=== PATIENT | female | born 1985 ===

== ENCOUNTER → 2019-04-17 | Outpatient (CLI) | payer MEDICAID ==
--- NOTE | 2019-04-17 12:39 | Diagnostic Imaging Report ---
INDICATION: survey. TECHNIQUE: Multiple real-time grayscale images were obtained over the gravid uterus. COMPARISON: None. FINDINGS: There are no prior studies available for comparison. There is a single live fetus in cephalic presentation. heart motion was noted, and a rate of 156 BPM was recorded. There were no abnormalities identified. The growth parameters are fairly uniform. The placenta is anterior, and there is no previa. The amniotic fluid volume is within normal limits. The cervix was visualized and measures 4.9 cm in length. Biometrical measurements are as follows: Biparietal 3.82 cm, age 17 weeks 5 days. Head circumference 13.77 cm, age 17 weeks 2 days. Abdominal circumference 11.53 cm, age 17 weeks 3 days. Femur length 2.24 cm, age 16 weeks 5 days. Sonographic estimate age: 17 weeks 2 days. Sonographic estimated date of delivery: 09/23/2019. Estimated Weight: 179 gm (+/- 26 gm). LMP percentile: 6%. heart rate: 156 beats per minute. number: 1 of 1. IMPRESSION: 1. There is a single live fetus of approximately 17 weeks 2 days gestation, +/-1 week. The EDC is September 23, 2019. 2. There were no abnormalities identified. 3. The growth parameters are fairly uniform. Dictated by: Dictated on workstation # [id number]
== END ==
LOC: RAD 11:12
PROVIDERS: ATTEND Family Medicine
DX: Z36.89 Encounter for other specified antenatal screening (principal); Z3A.17 17 weeks gestation of pregnancy
CPT/HCPCS: 76805

== ENCOUNTER 2019-08-30 19:05 | Outpatient (CLI) | payer MEDICAID ==
[~2019-08-30] VITALS: Ht 154.9 cm; Wt 75.0 kg
--- NOTE | 2019-08-30 19:13 | NUR ---
MILTON GUPTA presented to unit via AMBULATION from ED, FOR INJECTION AND LAB WORK. MILTON GUPTA weighed, gowned, voided, and to bed. EFHM and TOCO applied, VS taken. MILTON GUPTA oriented to bed controls, call light, TV, heat, and A/C controls.
[2019-08-30] MEDS ORDERED: PEN G BENZ (BICILLIN LA) 1.2 M UN/2 ML SYR IM NR (19:30)
--- NOTE | 2019-08-30 20:11 | NUR ---
Dr. Fajardo notified that pt. has arrived to unit and lab work, injection, and FHT via Doppler were all completed. Pt. voiced no other concerns. Orders to discharge received.
--- NOTE | 2019-08-30 20:19 | NUR ---
Written discharge instructions reviewed with patient. Discharge instructions signed and copy given. patient dismissed home via ambulation. Condition stable. No signs or symptoms of distress.
--- NOTE | 2019-09-02 08:12 | Physician Query-Final Dx ---
ABDELRAHMAN MERCHANT 09/02/19 0812: Clinic Account Progress/Dx Physician Query: Please give diagnosis Please include # weeks gestation Date of Service Aug 30, 2019 at 19:05 PHILL CHANDLER MD 09/02/19 1420: Clinic Account Progress/Dx DIAGNOSIS: Diagnosis Third trimester Genital ulcer ABDELRAHMAN MERCHANT Sep 02, 2019 08:12 PHILL CHANDLER MD Sep 02, 2019 14:20
== END 2019-08-30 20:19 | disposition home or self-care (01) ==
LOC: LDRP 19:05 → WSo 19:05
PROVIDERS: ATTEND Family Medicine
DX: O23.593 Infection of other part of genital tract in pregnancy, third trimester (principal); Z3A.00 Weeks of gestation of pregnancy not specified
CPT/HCPCS: 36415; 86780; 96372; 99212

== ENCOUNTER 2019-09-09 16:40 | Inpatient (IN) | payer MEDICAID ==
[2019-09-09] VITALS (24 sets, daily range): BP systolic 100–145; BP diastolic 59–84
[~2019-09-09] VITALS: Ht 152 cm; Wt 75.1 kg
--- NOTE | 2019-09-09 16:40 | NUR ---
MILTON GUPTA presented to unit via ambulation from office, accompanied by S.o., for INDUCTION. MILTON GUPTA weighed, gowned, voided, and to bed. EFHM and TOCO applied, VS taken. MILTON GUPTA oriented to bed controls, call light, TV, heat, and A/C controls. Addendum: 09/09/19 at 1947 by NAIF SAUNDERS RN Dr. Fajardo called about pt prior to arrival. notified no labor beds readily available. Just monitor pt until labor bed is available, then start labor process.
--- NOTE | 2019-09-09 16:45 | NUR ---
THIS RN INTRODUCES SELF TO PT AND SO, DISCUSS PLAN OF CARE, HOOK PT TO FHT MONITOR & TOCO, URINE DIPSTICK. PT WILL REMAIN IN ROOM 315 UNTIL LABOR ROOM BECOMES AVAILABLE. DR CHANDLER AND PT ARE BOTH AWARE OF THE SITUATION. WILL BEGIN INDUCTION AFTER MOVED TO LABOR ROOM. THIS RN SETS UP LABOR ROOM, QUESTIONS ANSWERED, CALL LIGHT WITHIN REACH.
[2019-09-09] MEDS ORDERED: D5 LR IV SOLUTION 1,000 ML IV SCH (16:51)
[2019-09-09] MEDS ORDERED: OXYTOCIN/NORMAL SALINE 500 ML IV SCH (16:51)
--- NOTE | 2019-09-09 18:15 | NUR ---
Dr. Fajardo called and notified of IV start, pt ready for pitocin. OK to get epidural when requests, order for diflucan rec'd for yeast infection, may change NPO to clear liquid diet. No further orders rec'd.
[2019-09-09 18:17] LABS: BASOPHILS % (AUTO) 0 % (0-10); EOSINOPHILS # (AUTO) 0.1 10^3/uL (0.0-0.3); EOSINOPHILS % (AUTO) 1 % (0-10); HEMATOCRIT 36 % (35-52); HEMOGLOBIN 12.4 G/DL (11.5-16.0); LYMPHOCYTES # (AUTO) 1.7 X 10^3 (1.0-4.0); LYMPHOCYTES % (AUTO) 20 % (12-44); MEAN CORPUSCULAR HEMOGLOBIN 33 PG (25-34); MEAN CORPUSCULAR HGB CONC 34 G/DL (32-36); MEAN CORPUSCULAR VOLUME 97 FL (80-99); MEAN PLATELET VOLUME 11.4 FL (7.4-10.4); MONOCYTES # (AUTO) 0.7 X 10^3 (0.0-1.0); MONOCYTES % (AUTO) 8 % (0-12); NEUTROPHILS # (AUTO) 5.9 X 10^3 (1.8-7.8); NEUTROPHILS % (AUTO) 70 % (42-75); PLATELET COUNT 172 10^3/uL (130-400); RED CELL DISTRIBUTION WIDTH 13.9 % (10.0-14.5); WHITE BLOOD COUNT 8.4 10^3/uL (4.3-11.0)
[2019-09-09] MEDS ORDERED: fluCOnazole (DIFLUCAN) 100 MG TAB PO NR (18:45)
[2019-09-09] MEDS ORDERED: SUFENTA 0.6MCG/ML BUPIVA 0.125 100 ML ONE (19:30)
[2019-09-09] MEDS ORDERED: BUPIVACAINE 0.25% 30 ML (SENSORCAINE) VIAL ONE (19:51)
[2019-09-09] MEDS ORDERED: fentaNYL INJECTION 100 MCG/2 ML AMP ONE (19:51)
--- NOTE | 2019-09-09 19:56 | NUR ---
Teresita Xiong FOOT WORKER here for epidural placement. Procedure explained, consent reviewed and signed by anesthesia. Questions answered to patient's satisfaction. Time out taken to verify correct patient/procedure. Patient up to side of bed, assisted into sitting position. Betadine prep done x3 and sterile drape applied. Local done, see anesthesia record. Test dose given, see anesthesia record for drug and dosage. Epidural catheter secured in place. Epidural placement complete. Assisted back into bed, monitors adjusted. Epidural dosed, see anesthesia record. Epidural of Sufenta/Bupivicaine @ 10 cc/hr stated per pump. Patient tolerated procedure well.
--- NOTE | 2019-09-09 20:50 | History & Physical-OB ---
OB - Chief Complaint & HPI Date/Time Date of Admission: Date of Admission: Sep 09, 2019 at 16:40 Date seen by a Provider: Sep 09, 2019 Time Seen by a Provider: 20:30 Chief Complaint/History OB-Reason for Admission/Chief: Induction of Labor Hx : 3 Hx Para: 2 Expected Date of Delivery: Sep 18, 2019 Gestational Age in Weeks: 38 Gestational Age in Days: 5 Indication for induction: other (oligohydramnios, non-reassuring BPP) History of Labs O+, antibody neg, RI. HIV/HepB Neg. GC/chlamydia neg. Glucola nml. GBS neg. RPR REACTIVE, FTA abs positive Allergies and Home Medications Allergies Coded Allergies: No Known Drug Allergies (Unverified , 08/30/19) Home Medications Vit No.124/Iron/FA 1 Each Tablet, 1 EACH PO DAILY, (Reported) Ranitidine HCl 150 Mg Tablet, 150 MG PO DAILY, (Reported) Patient Home Medication List Home Medication List Reviewed: Yes OB - History Hx of Present Care: Yes Ultrasounds: Normal mid trimester US Obstetrical Complications: Other Information Induced Hypertension: No Maternal Gestational Diabetes: No Hemorrhage: No Obstetrical History Hx : 3 Hx Para: 2 Hx # Term Pregnancies: 2 Hx # Pregnancies: 0 Hx Total # of Abortions (Spona: 1 Hx Multiple Gestation: No Hx Ectopic : No Hx Stillbirth: No Hx Complication: Yes (seizures in second trimester with first two pregnancies) Hx Induced Hypertens: No Hx Maternal Gestational Diabet: No Hx Hemorrhage: No Delivery History Hx Dystocia: No Hx Forceps Assisted Delivery: No Hx Vacuum Extraction Assisted: No Hx Placenta Abnormality: No Hx Distress: No Hx Large For Gestational Age I: No Hx Small for Gestational Age I: No Hx Section: No Hx Vaginal Delivery Post C-Sec: No Hx Blood Disorders: No Adverse Rxn to Tranfusion: No Patient Past Medical History Syphilis Social History/Family History HIV/AIDS: No Recent Infectious Disease Expo: No Sexually Transmitted Disease: Yes Alcohol Use: Denies Use Recreational Drug Use: No Smoking Cessation: Never smoker Immunizations Hepatitis A: Yes Hepatitis B: Yes Rubella: immune RPR/VDRL: Positive GBS Status: Negative HBsAG: Negative OB - Admission Exam Physical Exam Vitals: Vital Signs 09/09/19 09/09/19 17:00 19:00 Temp 36.7 Pulse 100 Resp 20 B/P (MAP) 143/84 (103) Pulse Ox 98 O2 Delivery Room Air HEENT: NCAT Abdomen: Non tender Extremities: Edema Cervical Dilatation: 4cm Effacement: 25% Station: -3 Membranes: Ruptured (AROM at time of exam) Amniotic Fluid: Clear Heart Rate: 120's Decelerations: No Decelerations Short Term Variability: Present Jail Variability: Average (6-25) Contractions on Admission: >10 Minutes Apart Soria Scoring Tool (Modified) Dilation (cm): 3-4cm (2) Effacement (%): 51-79% (2) Descent/Station: -3 (0) Cervix Consistency: Soft (2) Cervix Position: Anterior (2) Add 1 point for: Each previous vaginal delivery (1) (2) Soria Score: 6 Labs Laboratory Tests Test 09/09/19 18:00 Range/Units White Blood Count 8.4 4.3-11.0 10^3/uL Red Blood Count 3.73 L 4.35-5.85 10^6/uL Hemoglobin 12.4 11.5-16.0 G/DL Hematocrit 36 35-52 % Mean Corpuscular Volume 97 80-99 FL Mean Corpuscular Hemoglobin 33 25-34 PG Mean Corpuscular Hemoglobin Concent 34 32-36 G/DL Red Cell Distribution Width 13.9 10.0-14.5 % Platelet Count 172 130-400 10^3/uL Mean Platelet Volume 11.4 H 7.4-10.4 FL Neutrophils (%) (Auto) 70 42-75 % Lymphocytes (%) (Auto) 20 12-44 % Monocytes (%) (Auto) 8 0-12 % Eosinophils (%) (Auto) 1 0-10 % Basophils (%) (Auto) 0 0-10 % Neutrophils # (Auto) 5.9 1.8-7.8 X 10^3 Lymphocytes # (Auto) 1.7 1.0-4.0 X 10^3 Monocytes # (Auto) 0.7 0.0-1.0 X 10^3 Eosinophils # (Auto) 0.1 0.0-0.3 10^3/uL Basophils # (Auto) 0.0 0.0-0.1 10^3/uL OB - Assessment/Plan/Diagnosis Assessment Assessment: induction of labor Admission Dx Oligohydramnios Nonreassuring BPP Induction of labor 38 weeks gestation Primary syphilis at 35-36 weeks gestation GBS negative Admission Status: Inpatient Order (span 2 midnights) Reason for Inpatient Admission: Induction, labor and delivery and course Plan Plan: Induction Induction Method: per Pitocin Protocol Other Plan See problem list Problems: (1) Primary syphilis Assessment & Plan: Lesion first noted at 35 weeks and was not ulcerated, at 36 weeks, lesion had ulcerated and repeat RPR drawn which was non-reactive, but at the same time had positive TPPA so she was treated with IM penicillin and FTA abs drawn, those also came back positive. Lesion is currently healed. Repeat RPR at 38 weeks positive 1:2. Will plan to treat given her treatment was adequate but less than 4 weeks from delivery. (2) Oligohydramnios Assessment & Plan: JOSE less than 5 today, along with BPP 03/04. Induction due to non-reassuring testing. Qualifiers: Qualified Codes: O41.03X0 - Oligohydramnios, third trimester, not applicable or unspecified PHILL CHANDLER MD Sep 09, 2019 20:49
[2019-09-09] MEDS ORDERED: RANI150T11 PO (20:51)
[2019-09-09] MEDS ORDERED: PREN-142 PO (20:51)
[2019-09-09] MEDS ORDERED: LACTATED RINGERS 1,000 ML IV ONE (20:57)
[2019-09-09] MEDS ORDERED: EPIDURAL (SUFENTA 0.6MCG/ML BUPIVA 0.125%) 100 ML BAG EPI SCH (21:00)
[2019-09-09] MEDS ORDERED: CATHETER FLUSH 10 ML SYR IV PRN (21:00)
[2019-09-09] MEDS ORDERED: NALOXONE 0.4 MG/ML 1 ML (NARCAN) VIAL IV PRN (21:00)
[2019-09-09] MEDS ORDERED: CATHETER FLUSH 10 ML SYR IV SCH (22:00)
[2019-09-09] MEDS ORDERED: MINERAL OIL CONCENTRATE 99.9% 15 ML UDC ONE (23:56)
[2019-09-09] MEDS ORDERED: LIDOCAINE/EPI 2% 1:200,00 (XYLOCAINE) 10 ML VIAL ONE ×2 (23:56)
[2019-09-10] VITALS (16 sets, daily range): BP systolic 102–141; BP diastolic 51–92
--- NOTE | 2019-09-10 00:53 | OB Labor & Delivery Record ---
Vag Delivery Note Vag Delivery Note Date of Delivery: 09/10/19 Preoperative Diagnosis: Sherlyn Boyd is a 33 /Para 3 / 2,Gestational Age (wks)38with 6 days Postoperative Diagnosis: Same Surgeon: PHILL CHANDLER Occupational Medicine Officer: Emily Mclaughlin, OMS3 Anesthesia: Epidural Delivery Type: Spontaneous vaginal delivery Findings: Viable male , apgars 8/8, weight 6#9 Lacerations: perineal abrasion Intact placenta with 3 vessel cord. Nuchal cord x 1, reduced, no body cord or shoulder dystocia Estimated Blood Loss: 300 ml Complications: None Condition: Stable Description of Procedure: The patient is a 33 year old female who presented for IOL due to oligohydramnios. She was admitted and informed consent was obtained. Her labor course was remarkable for early decelerations with rapid descent. She progressed to complete dilatation and began to push. She was then set up for delivery. The 's head was delivered atraumatically in the SUZAN position. Nuchal cord x 1 easily reduced. The shoulders and remainder of the 's body were then delivered without difficulty. Upon delivery, the infant was placed on maternal abdomen. The cord was doubly clamped and cut and the infant was transitioning well on maternal abdomen/[id number]. An intact placenta with 3-vessel cord delivered via David and there was found to be minimal bleeding.~ Vigorous fundal massage was performed and the fundus was found to be firm. IV oxytocin was given. Examination of the vagina and perineum revealed a perineal abrasion not requiring repair. Following the repair, sponge, instrument and needle counts were correct. Mom and baby were both in stable condition in the labor suite. Vitals - Labs Vital Signs - I&O Vital Signs Date Time Temp Pulse Resp B/P (MAP) Pulse Ox O2 Delivery O2 Flow Rate FiO2 09/09/19 20:45 36.6 123 20 119/76 (90) 100 Room Air 09/09/19 20:30 99 20 145/81 (102) 100 Room Air 09/09/19 20:15 110 20 135/81 (99) 100 Room Air 09/09/19 20:08 88 20 124/73 (90) 100 Room Air 09/09/19 20:05 84 20 131/79 (96) 100 Room Air 09/09/19 20:01 87 20 128/81 (97) 100 Room Air 09/09/19 20:00 36.6 83 20 115/59 (77) 100 Room Air 09/09/19 19:56 94 20 135/83 (100) 100 Room Air 09/09/19 19:45 20 Room Air 09/09/19 19:30 98 20 123/77 (92) Room Air 09/09/19 19:00 36.7 100 20 143/84 (103) 09/09/19 17:00 35.7 95 18 98 Room Air 09/09/19 16:50 35.7 100 20 113/74 (87) 98 Room Air I & O 09/10/19 07:00 Intake Total 1000 ml Balance 1000 ml Labs Laboratory Tests 09/09/19 18:00: White Blood Count 8.4, Red Blood Count 3.73L, Hemoglobin 12.4, Hematocrit 36, Mean Corpuscular Volume 97, Mean Corpuscular Hemoglobin 33, Mean Corpuscular Hemoglobin Concent 34, Red Cell Distribution Width 13.9, Platelet Count 172, Mean Platelet Volume 11.4H, Neutrophils (%) (Auto) 70, Lymphocytes (%) (Auto) 20, Monocytes (%) (Auto) 8, Eosinophils (%) (Auto) 1, Basophils (%) (Auto) 0, Neutrophils # (Auto) 5.9, Lymphocytes # (Auto) 1.7, Monocytes # (Auto) 0.7, Eo sinophils # (Auto) 0.1, Basophils # (Auto) 0.0 PHILL CHANDLER MD Sep 10, 2019 00:53
[2019-09-10] MEDS ORDERED: BENZOCAINE/MENTHOL (DERMOPLAST) 56 ML CAN TP PRN (01:45)
[2019-09-10] MEDS ORDERED: OXYTOCIN/NORMAL SALINE 500 ML IV SCH (01:45)
[2019-09-10] MEDS ORDERED: WITCH HAZEL(TUCKS) 40 EA JAR TOP PRN (01:45)
[2019-09-10] MEDS ORDERED: IBUPROFEN 600 MG (MOTRIN) TAB PO ONE (01:52)
[2019-09-10] MEDS: IBUPROFEN 600 MG (MOTRIN) TAB PO SCH ×4 (01:59→21:36)
--- NOTE | 2019-09-10 01:59 | NUR ---
Scheduled Motrin PO given. Fundus firm U/1 with small rubra lochia noted. No clots. Pericare completed and clean pad and panties applied. Infant continues to breastfeed.
--- NOTE | 2019-09-10 02:15 | NUR ---
Report to Augusto Hines RN.
[2019-09-10] MEDS ORDERED: IBUPROFEN 600 MG (MOTRIN) TAB PO SCH (06:00)
[2019-09-10] MEDS ORDERED: CATHETER FLUSH 10 ML SYR IV SCH (06:00)
--- NOTE | 2019-09-10 08:15 | NUR ---
THIS RN TO BEDSIDE DUE TO 'S IV BEEPING. PT IN BED, DENIES ANY NEEDS AT THIS TIME. WILL RETURN SHORTLY FOR AM ASSESSMENT.
[2019-09-10] MEDS: PRENATAL VITAMIN 1 EA TAB PO SCH (09:13)
[2019-09-10] MEDS: DOCUSATE SODIUM 100 MG (COLACE) CAP PO SCH ×2 (09:13→20:12)
--- NOTE | 2019-09-10 09:15 | NUR ---
PT REMAINS IN BED, BEING HELD. VS OBTAINED. MEDS GIVEN PO; SEE EMAR FOR FURTHER. INITIAL SHIFT ASSESSMENT COMPLETED; SEE INTERVENTION FOR FURTHER. NO NEEDS VOICED. CALL LIGHT WITHIN REACH.
--- NOTE | 2019-09-10 09:25 | Anesthesia-Regional Post-Op ---
Regional Patient Condition Mental Status: Alert, Oriented x3 Circulation: Same as Pre-Op Headache: Absent Sensation: Full Recovery Motor Block: Absent Post Op Complications Complications None Follow Up Care/Instructions Patient Instructions None needed. Anesthesia/Patient Condition Patient is doing well, no complaints, stable vital signs, no apparent adverse anesthesia problems. No complications reported per nursing. RINA MOBLEY CRNA Sep 10, 2019 09:25
--- NOTE | 2019-09-10 12:30 | NUR ---
PT SITTING IN CHAIR, JUST FINISHED EATING. VS OBTAINED. IV DC'D. GAUZE AND BAND AID APPLIED OVER SITE. NO NEEDS VOICED. S/O AT THE BEDSIDE.
[2019-09-11 00:45] VITALS: BP 104/66
[2019-09-11] MEDS: IBUPROFEN 600 MG (MOTRIN) TAB PO SCH ×4 (03:38→20:20)
[2019-09-11 03:40] VITALS: BP 94/58
[2019-09-11 06:03] LABS: BASOPHILS % (AUTO) 1 % (0-10); EOSINOPHILS # (AUTO) 0.2 10^3/uL (0.0-0.3); EOSINOPHILS % (AUTO) 3 % (0-10); HEMATOCRIT 34 % (35-52); HEMOGLOBIN 11.1 G/DL (11.5-16.0); LYMPHOCYTES # (AUTO) 2.5 X 10^3 (1.0-4.0); LYMPHOCYTES % (AUTO) 31 % (12-44); MEAN CORPUSCULAR HEMOGLOBIN 32 PG (25-34); MEAN CORPUSCULAR HGB CONC 33 G/DL (32-36); MEAN CORPUSCULAR VOLUME 98 FL (80-99); MEAN PLATELET VOLUME 11.4 FL (7.4-10.4); MONOCYTES # (AUTO) 0.9 X 10^3 (0.0-1.0); MONOCYTES % (AUTO) 11 % (0-12); NEUTROPHILS # (AUTO) 4.3 X 10^3 (1.8-7.8); NEUTROPHILS % (AUTO) 55 % (42-75); PLATELET COUNT 147 10^3/uL (130-400); WHITE BLOOD COUNT 7.9 10^3/uL (4.3-11.0)
[2019-09-11 08:00] VITALS: BP 95/68
--- NOTE | 2019-09-11 08:45 | NUR ---
A.M. ASSESSMENT COMPLETED. VSS. REMAINS IN CONTACT ISOLATION.CARING FOR INFANT IN ROOM.
[2019-09-11] MEDS: PRENATAL VITAMIN 1 EA TAB PO SCH (08:53)
[2019-09-11] MEDS: DOCUSATE SODIUM 100 MG (COLACE) CAP PO SCH ×2 (08:53→20:20)
--- NOTE | 2019-09-11 10:00 | NUR ---
NO APPARENT PROBLEMS. S.O. AT BEDSIDE. BACK TO STANDARD PRECAUTIONS PER DR. LAROSE'S ORDER.
--- NOTE | 2019-09-11 12:00 | NUR ---
CONTINUES TO DO WELL.
[2019-09-11 14:00] VITALS: BP 102/61
--- NOTE | 2019-09-11 14:00 | NUR ---
VSS. . DOING WELL. OFFERS NO COMPLAINTS.
--- NOTE | 2019-09-11 16:20 | NUR ---
INFANT REMAINS IN ROOM. S.O. AT BEDSIDE. DENIES ANY WANTS OR NEEDS.
--- NOTE | 2019-09-11 17:50 | NUR ---
HOLDING . PREPARING TO EAT DINNER.
[2019-09-11 20:20] VITALS: BP 98/66
--- NOTE | 2019-09-11 23:02 | Postpartum Progress Note ---
Note Note Day # 1 Subjective: Patient is without complaints. Ambulating, voiding. Tolerating a regular diet without nausea or vomiting. Normal lochia. Pain is well controlled with oral pain medications. Breast feeding without difficulty. Tearful during visit. Objective: Physical Exam: General - Alert and oriented, no apparent distress Abdomen - Soft, appropriately tender to palpation, non-distended, fundus firm at umbilicus Extremities - no edema, negative Laya's bilaterally Assessment: 31 post- day # 1, status post uncomplicated vaginal delivery at term Recovering well, hemodynamically stable Plan: Routine care. Encourage breast feeding. Encourage ambulation. Syphillis during : Patient has completed treatment Plan for discharge tomorrow Vitals - Labs Vital Signs - I&O Vital Signs Date Time Temp Pulse Resp B/P (MAP) Pulse Ox O2 Delivery O2 Flow Rate FiO2 09/11/19 20:20 37.1 76 18 98/66 (77) 99 Room Air 09/11/19 14:00 36.5 74 18 102/61 (75) 97 Room Air 09/11/19 08:00 37.0 70 18 95/68 (77) 99 Room Air 09/11/19 03:40 36.6 79 16 94/58 (70) 99 Room Air 09/11/19 00:45 36.4 85 16 104/66 (79) 99 Room Air Labs Laboratory Tests 09/11/19 05:24: White Blood Count 7.9, Red Blood Count 3.47L, Hemoglobin 11.1L, Hematocrit 34L, Mean Corpuscular Volume 98, Mean Corpuscular Hemoglobin 32, Mean Corpuscular Hemoglobin Concent 33, Red Cell Distribution Width 14.0, Platelet Count 147, Mean Platelet Volume 11.4H, Neutrophils (%) (Auto) 55, Lymphocytes (%) (Auto) 31, Monocytes (%) (Auto) 11, Eosinophils (%) (Auto) 3, Basophils (%) (Auto) 1, Neutrophils # (Auto) 4.3, Lymphocytes # (Auto) 2.5, Monocytes # (Auto) 0.9, Eosinophils # (Auto) 0.2, Basophils # (Auto) 0.0, Syphilis Serology [facility] JIE LAROSE MD Sep 11, 2019 23:01
[2019-09-12 01:24] VITALS: BP 99/68
[2019-09-12] MEDS: IBUPROFEN 600 MG (MOTRIN) TAB PO SCH ×3 (01:24→13:49)
[2019-09-12] MEDS ORDERED: KETOROLAC 30 MG/ML VIAL ONE (07:36)
--- NOTE | 2019-09-12 07:36 | NUR ---
toradol pulled in error. medication returned. see eMAR for AM medication administration.
[2019-09-12 08:30] VITALS: BP 102/70
--- NOTE | 2019-09-12 08:30 | NUR ---
lights off, s/o resting on sofa at bedside. semi-cruz in bed with infant in arms. vitals taken. see eMAR, and physical shift assessment. fresh pitcher of ice water placed at bedside. denies questions or concerns. will continue to monitor.
[2019-09-12] MEDS: PRENATAL VITAMIN 1 EA TAB PO SCH (08:41)
[2019-09-12] MEDS: DOCUSATE SODIUM 100 MG (COLACE) CAP PO SCH (08:41)
--- NOTE | 2019-09-12 12:57 | Discharge Summary ---
Diagnosis/Chief Complaint Date of Admission Sep 09, 2019 at 16:40 Date of Discharge 09/12/2019 Admission Diagnosis Admission Diagnosis Labor 40 week gestation Term Syphilis in Discharge Diagnosis Term of male via Discharge Summary-Simple/Stand Procedures Epidural Placement Discharge Physical Examination Allergies: Coded Allergies: No Known Drug Allergies (Unverified , 08/30/19) Vitals & I&Os Vital Sign - Last 12Hours Date Time Temp Pulse Resp B/P (MAP) Pulse Ox O2 Delivery O2 Flow Rate FiO2 09/12/19 08:30 36.4 80 18 102/70 (81) Room Air 09/12/19 01:24 100 General Appearance: Alert, Oriented X3, Cooperative, No Acute Distress HEENT: Mucous Memb Moist/Geiger Respiratory: Clear to Auscultation, Normal Air Movement Cardiovascular: Regular Rate, No Murmurs Abdominal: Normal Bowel Sounds, Soft, No Tenderness, No Masses, Other (fundus firm and below umbilicus) Extremities: No Edema, No Tenderness/Swelling Neuro: Strength at 5/5 X4 Ext, Cranial Nerves 3-12 NL Psych/Mental Status: Mental Status NL Hospital Course See final discharge diagnosis. Discussion & Recommendations 33 yo G3 now P3 mother delivered male via . care complicated with Reactive RPR and ulceration around 35 weeks. Patient was adequately treated but since less then 4 weeks of treatment requires treatment and screening. Breast feeding well. Patient will have 6 week post visit with Dr Fajardo Discharge Condition at discharge stable Instructions to patient/family Please see electronic discharge instructions given to patient. Discharge Medications Reviewed and agree with Discharge Medication list on patient's Discharge Instruction sheet Clinical Quality Measures DVT/VTE Risk/Contraindication: Risk Factor Score Per Nursin RFS Level Per Nursing on Admit: 2=Moderate JIE LAROSE MD Sep 12, 2019 12:57
[2019-09-12] MEDS ORDERED: IBUP-844 PO (12:58)
--- NOTE | 2019-09-12 13:00 | Discharge Instructions ---
Discharge Inst-[facility] Reconcile Patient Problems Problems Reviewed?: Yes Depart Medications New Medications: Ibuprofen (Ibu) 600 Mg Tablet 600 MG PO Q6H, #90 TAB Continued Medications: Vit No.124/Iron/FA ( Vitamin Tablet) 1 Each Tablet 1 EACH PO DAILY, TAB Discontinued Medications: Ranitidine HCl (Ranitidine HCl) 150 Mg Tablet 150 MG PO DAILY Follow Up/Instructions Goal/Follow Up: F.u with Dr Fajardo in 6 weeks Activity Activity: Activity as Tolerated Driving Instructions: You May Drive NO SMOKING: NO SMOKING Nothing Inside Vagina: No Douching, No [place], No Tampons Diet Discharge Diet: No Restrictions Symptoms to Report to : Bleeding Excessive, Fever Over 101 Degrees F, Lightheadedness, Shortness of Breath For Any Problems or Questions: Contact Your Physician Copies To 1: PHILL FAJARDO MD, HOLLY R MD Sep 12, 2019 13:00
[2019-09-12 13:45] VITALS: BP 106/69
--- NOTE | 2019-09-12 14:00 | NUR ---
MILTON GUPTA demonstrates understanding of discharge instructions and accurately returns instructions upon questioning. Copy of Post-Discharge Instructions and Medication Discharge Instructions given to PATIENT. MILTON UGPTA is able to manage continuing needs after discharge. Patients belongings returned to PATIENT. Skin dry and intact; no breakdown noted. Patient discharged from [facility]- on 09-12-19 at 1400.
== END 2019-09-12 14:00 | disposition home or self-care (01) | DRG 806 ==
LOC: LDRP 16:40 → WS 09-10 03:15
PROVIDERS: ADMIT Family Medicine; ATTEND Family Medicine
PROC: 3E033VJ Introduction of Other Hormone into Peripheral Vein, Percutaneous Approach (ICD-10-PCS; 2019-09-09)
PROC: 10E0XZZ Delivery of Products of Conception, External Approach (ICD-10-PCS; principal; 2019-09-10)
DX: O41.03X0 Oligohydramnios, third trimester, not applicable or unspecified (principal); O98.12 Syphilis complicating childbirth; A53.9 Syphilis, unspecified; O69.81X0 Labor and delivery complicated by cord around neck, without compression, not applicable or unspecified; O71.82 Other specified trauma to perineum and vulva; O76 Abnormality in fetal heart rate and rhythm complicating labor and delivery; Z3A.38 38 weeks gestation of pregnancy; Z37.0 Single live birth
CPT/HCPCS: 36415; 85025; 86592; 86780; 86850; 86900; 86901; 88307

== ENCOUNTER 2023-01-03 19:26 | Outpatient (CLI) | payer MEDICAID ==
[~2023-01-03] VITALS: Ht 154.9 cm; Wt 76.6 kg
[~2023-01-03 19:26] MED LIST: IBUP-844 PO; PREN-142 PO; RANI150T11 PO
[2023-01-03 20:00] VITALS: BP 101/73
--- NOTE | 2023-01-04 08:13 | Physician Query-Final Dx ---
01/04/23 0813: Clinic Account Progress/Dx Physician Query: Please give diagnosis Please include # weeks gestation Date of Service Jan 03, 2023 at 19:26 PHILL CHANDLER MD 01/04/23 1617: Clinic Account Progress/Dx DIAGNOSIS: Diagnosis Decreased movement- reactive NST, BPP ordered for am. Third trimester 38 weeks gestation Jan 04, 2023 08:13 PHILL CHANDLER MD Jan 04, 2023 16:17
== END 2023-01-03 21:00 | disposition home or self-care (01) ==
LOC: LDRP 19:26 → WSo 19:26 → LDRP 19:34 → WSo 21:00
PROVIDERS: ATTEND Family Medicine
DX: O36.8130 Decreased fetal movements, third trimester, not applicable or unspecified (principal); Z3A.38 38 weeks gestation of pregnancy
CPT/HCPCS: 99213

== ENCOUNTER → 2023-01-04 | Outpatient (CLI) | payer MEDICAID ==
--- NOTE | 2023-01-04 13:22 | Diagnostic Imaging Report ---
INDICATION: Decreased movements. TECHNIQUE: Multiple real-time grayscale images were obtained over the gravid uterus. COMPARISON: None FINDINGS: There is a single live fetus in a cephalic presentation. heart rate was recorded at 153 bpm. Amniotic fluid index is 12.1 cm. A biophysical profile was performed with a normal score of 8 out of 8. Biometrical measurements are as follows: Biparietal 9.53 cm, age 39 weeks 0 days. Head circumference 33.62 cm, age 38 weeks 4 days. Abdominal circumference 32.00 cm, age 36 weeks 0 days. Femur length 7.27 cm, age 37 weeks 2 days. Sonographic estimate age: 37 weeks 5 days. Sonographic estimated date of delivery: 01/20/2023. Estimated Weight: 3052 gm (+/- 446 gm). LMP percentile: 28%. heart rate: 153 beats per minute. number: 1 of 1. IMPRESSION: 1. Single live IUP approximate 38 weeks gestational age. No complicating features are seen. 2. Biophysical profile score 8 out of 8. Dictated by: Dictated on workstation # [id number]
== END ==
LOC: RAD 08:15
PROVIDERS: ATTEND Family Medicine
DX: O36.8130 Decreased fetal movements, third trimester, not applicable or unspecified (principal); Z3A.38 38 weeks gestation of pregnancy
CPT/HCPCS: 76805; 76819

== ENCOUNTER 2023-01-05 23:34 | Inpatient (IN) | payer MEDICAID ==
[~2023-01-05] VITALS: Ht 152.4 cm; Wt 77.2 kg
[2023-01-05 23:47] VITALS: BP 127/77
[2023-01-06] VITALS (36 sets, daily range): BP systolic 85–137; BP diastolic 52–79
[2023-01-06] MEDS ORDERED: MINERAL OIL 30 ML UDC TOP PRN (06:15)
[2023-01-06] MEDS ORDERED: OXYTOCIN PRE-MIX DRIP 500 ML IV SCH ×3 (06:15→12:45)
[2023-01-06] MEDS ORDERED: D5 LR IV SOLUTION 1,000 ML IV SCH (06:15)
[2023-01-06 06:57] LABS: BASOPHILS % (AUTO) 0 % (0-10); EOSINOPHILS # (AUTO) 0.1 10^3/uL (0.0-0.3); EOSINOPHILS % (AUTO) 1 % (0-10); HEMATOCRIT 34 % (35-52); HEMOGLOBIN 11.6 g/dL (11.5-16.0); LYMPHOCYTES # (AUTO) 1.7 10^3/uL (1.0-4.0); LYMPHOCYTES % (AUTO) 20 % (12-44); MEAN CORPUSCULAR HEMOGLOBIN 32 pg (25-34); MEAN CORPUSCULAR HGB CONC 34 g/dL (32-36); MEAN CORPUSCULAR VOLUME 94 fL (80-99); MEAN PLATELET VOLUME 11.4 fL (9.0-12.2); MONOCYTES # (AUTO) 0.9 10^3/uL (0.0-1.0); MONOCYTES % (AUTO) 10 % (0-12); NEUTROPHILS % (AUTO) 69 % (42-75); PLATELET COUNT 158 10^3/uL (130-400); WHITE BLOOD COUNT 8.8 10^3/uL (4.3-11.0)
[2023-01-06] MEDS ORDERED: fentaNYL 2 mcg/ml BUPIVA 0.125 100 ML ONE (08:07)
--- NOTE | 2023-01-06 08:09 | History & Physical-OB ---
OB - Chief Complaint & HPI Date/Time Date of Admission: Date of Admission: Jan 06, 2023 at 06:02 Date seen by a Provider: Jan 06, 2023 Time Seen by a Provider: 08:04 Chief Complaint/History OB-Reason for Admission/Chief: Onset of Labor Hx : 4 Hx Para: 3 Expected Date of Delivery: Jan 16, 2023 Gestational Age in Weeks: 38 Gestational Age in Days: 4 Other reason for admission: presented at 38w3d with contractions, has been having regular contractions for several days. On arrival, 4.5 cm dilated, this morning 5.5 cm. Admission Nurse Assessment Rev: Yes History of Labs O+, antibody neg, RI. HIV/HepB/RPR NR. 1 hour glucola positive, 3 hour negative. GBS negative. History of syphilis treated in previous in 2019 with sero-reversion and negative RPR in this . Allergies and Home Medications Allergies Coded Allergies: No Known Drug Allergies (Unverified , 08/30/19) Patient Home Medication List Home Medication List Reviewed: Yes Vit No.124/Iron/FA ( Vitamin Tablet) 1 Each Tablet, 1 EACH PO DAILY, (Reported) Entered as Reported by: PHILL CHANDLER on 09/09/192050 Last Action: Reviewed Discontinued Medications Ibuprofen (Ibu) 600 Mg Tablet, 600 MG PO Q6H Discontinued Reason: No Longer Taking Prescribed by: JIE LAROSE on 09/12/19 1258 OB - History Hx of Present Care: Yes Ultrasounds: Normal mid trimester US Obstetrical Complications: None Medical Complications: None Information Induced Hypertension: No Maternal Gestational Diabetes: No Hemorrhage: No Obstetrical History Hx : 4 Hx Para: 3 Hx # Term Pregnancies: 3 Hx # Pregnancies: 0 Number of Living Children: 3 Hx Termination: No Hx Total # of Abortions (Spona: 0 Hx Multiple Gestation: No Hx Ectopic : No Hx Stillbirth: No Hx Complication: Yes (seizures in second trimester with first two pregnancies) Hx Induced Hypertens: No Hx Maternal Gestational Diabet: No Hx Hemorrhage: No Delivery History Hx Dystocia: No Hx Forceps Assisted Delivery: No Hx Vacuum Extraction Assisted: No Hx Placenta Abnormality: No Hx Distress: No Hx Large For Gestational Age I: No Hx Small for Gestational Age I: No Hx Section: No Hx Vaginal Delivery Post C-Sec: No Hx Blood Disorders: No Adverse Rxn to Tranfusion: No Patient Past Medical History PMHx: Syphilis treated in 2019 with follow up testing negative Social History/Family History Alcohol Use: Denies Use Recreational Drug Use: No Smoking Cessation: Never smoker 2nd Hand Smoke Exposure: No Immunizations Influenza Vaccine Up-to-Date: No; Not Current Hepatitis A: Yes Hepatitis B: Yes Rubella: immune RPR/VDRL: Negative GBS Status: Negative HBsAG: Negative OB - Admission Exam Physical Exam Vitals: Vital Signs HEENT: NCAT Abdomen: Non tender Extremities: Normal Cervical Dilatation: 5cm Effacement: 50% Station: -3 Membranes: Intact (ruptured at time of exam) Amniotic Fluid: Clear Heart Rate: 130's Accelerations: Accelerations Present Decelerations: No Decelerations [facility] Variability: Average (6-25) Contractions on Admission: < 5 Minutes Apart Labs Laboratory Tests Test 01/06/23 06:45 Range/Units White Blood Count 8.8 4.3-11.0 10^3/uL Red Blood Count 3.59 L 3.80-5.11 10^6/uL Hemoglobin 11.6 11.5-16.0 g/dL Hematocrit 34 L 35-52 % Mean Corpuscular Volume 94 80-99 fL Mean Corpuscular Hemoglobin 32 25-34 pg Mean Corpuscular Hemoglobin Concent 34 32-36 g/dL Red Cell Distribution Width 12.5 10.0-14.5 % Platelet Count 158 130-400 10^3/uL Mean Platelet Volume 11.4 9.0-12.2 fL Immature Granulocyte % (Auto) 0 % Neutrophils (%) (Auto) 69 42-75 % Lymphocytes (%) (Auto) 20 12-44 % Monocytes (%) (Auto) 10 0-12 % Eosinophils (%) (Auto) 1 0-10 % Basophils (%) (Auto) 0 0-10 % Neutrophils # (Auto) 6.0 1.8-7.8 10^3/uL Lymphocytes # (Auto) 1.7 1.0-4.0 10^3/uL Monocytes # (Auto) 0.9 0.0-1.0 10^3/uL Eosinophils # (Auto) 0.1 0.0-0.3 10^3/uL Basophils # (Auto) 0.0 0.0-0.1 10^3/uL Immature Granulocyte # (Auto) 0.0 0.0-0.1 10^3/uL OB - Assessment/Plan/Diagnosis Assessment Assessment: active labor Admission Dx at 38w4d in prolonged latent labor GBS negative Admission Status: Inpatient Order (span 2 midnights) Reason for Inpatient Admission: Labor, delivery and course Plan Other Plan Discussed slow but persistent cervical change and persistent contractions indicated prolonged latent labor and discussed options including expectant management and augmentation. She is having significant pain with contractions and has made cervical change overnight and would prefer to proceed with augmentation, AROM done at time of exam. PHILL CHANDLER MD Jan 06, 2023 08:09
[2023-01-06] MEDS ORDERED: METOCLOPRAMIDE INJ 10 MG/2 ML (REGLAN) IV PRN (09:30)
[2023-01-06] MEDS ORDERED: NALOXONE 0.4 MG/ML 1 ML (NARCAN) VIAL IV PRN ×2 (09:30)
[2023-01-06] MEDS ORDERED: diphenhydrAMINE 50 MG/ML INJ (BENADRYL) IV PRN (09:30)
[2023-01-06] MEDS ORDERED: LACTATED RINGERS 1,000 ML IV SCH (09:30)
[2023-01-06] MEDS ORDERED: ONDANSETRON 4 MG/2 ML (SDV) Z0FRAN IV PRN (09:30)
[2023-01-06] MEDS ORDERED: fentaNYL 2 mcg/ml BUPIVA 0.125 100 ML EPI SCH (09:30)
--- NOTE | 2023-01-06 12:34 | OB Labor & Delivery Record ---
Vag Delivery Note Vag Delivery Note Date of Delivery: 01/06/23 Preoperative Diagnosis: Sherlyn Boyd is a (37 /Para 4 / 3,Gestational Age (wks)38with 4 days Postoperative Diagnosis: Same Surgeon: PHILL CHANDLER Anesthesia: Epidural Delivery Type: Findings: Viable male , apgars 8/9, weight 7#2 Lacerations: none Intact placenta with 3 vessel cord. No nuchal cord, body cord or shoulder dystocia Estimated Blood Loss: 100 ml Complications: None Condition: Stable Description of Procedure: The patient is a 37 year old female who presented in labor. She was admitted and informed consent was obtained. Her labor course was unremarkable. She progressed to complete dilatation and began to push. She was then set up for delivery. The 's head was delivered atraumatically in the SUZAN position. The shoulders and remainder of the infant's body were then delivered without difficulty. Upon delivery, the was vigorous and placed on maternal chest and the mouth and nares were bulb suctioned. After a delay cord was doubly clamped and cut and the infant remained on maternal chest. An intact placenta with 3-vessel cord delivered via David and there was found to be minimal bleeding.~ . IV oxytocin was given. Examination of the vagina and perineum revealed no lacerations. Following the delivery, sponge, instrument and needle counts were correct. Mom and baby were both in stable condition in the labor suite. Vitals - Labs Vital Signs - I&O Vital Signs Date Time Temp Pulse Resp B/P (MAP) Pulse Ox O2 Delivery O2 Flow Rate FiO2 01/06/23 11:00 87 18 116/61 (79) 99 Room Air 01/06/23 10:45 93 18 108/64 (79) 98 Room Air 01/06/23 10:30 36.2 93 18 104/61 (75) 97 Room Air 01/06/23 10:15 83 18 104/60 (75) 97 Room Air 01/06/23 10:00 94 18 116/64 (81) 97 Room Air 01/06/23 09:48 83 18 106/66 (79) 98 Room Air 01/06/23 09:45 83 18 106/66 (79) 98 Room Air 01/06/23 09:43 76 18 95/59 (71) 96 Room Air 01/06/23 09:40 76 18 88/53 (65) 96 Room Air 01/06/23 09:37 72 18 85/54 (64) 98 Room Air 01/06/23 09:34 86 18 93/55 (68) 97 Room Air 01/06/23 09:30 85 89/52 (64) 97 Room Air 01/06/23 09:29 97 18 92/55 (67) 97 Room Air 01/06/23 09:26 101 18 106/65 (79) 97 Room Air 01/06/23 09:23 91 18 104/66 (79) 97 Room Air 01/06/23 09:20 91 18 108/56 (73) 98 Room Air 01/06/23 09:15 94 18 122/71 (88) 98 Room Air 01/06/23 09:12 91 18 119/69 (86) 98 Room Air 01/06/23 09:10 37.2 83 18 116/57 (76) 98 Room Air 01/06/23 09:00 100 18 137/76 (96) 99 Room Air 01/06/23 08:30 87 18 110/68 (82) Room Air 01/06/23 08:00 36.7 85 18 114/79 (91) Room Air 01/06/23 07:30 88 18 110/70 (83) Room Air 01/05/23 23:47 36.4 105 18 127/77 95 Room Air 01/05/23 23:47 36.4 105 18 127/77 (94) 95 Room Air Labs Laboratory Tests 01/06/23 06:45: White Blood Count 8.8, Red Blood Count 3.59L, Hemoglobin 11.6, Hematocrit 34L, Mean Corpuscular Volume 94, Mean Corpuscular Hemoglobin 32, Mean Corpuscular Hemoglobin Concent 34, Red Cell Distribution Width 12.5, Platelet Count 158, Mean Platelet Volume 11.4, Immature Granulocyte % (Auto) 0, Neutrophils (%) (A uto) 69, Lymphocytes (%) (Auto) 20, Monocytes (%) (Auto) 10, Eosinophils (%) (Auto) 1, Basophils (%) (Auto) 0, Neutrophils # (Auto) 6.0, Lymphocytes # (Auto) 1.7, Monocytes # (Auto) 0.9, Eosinophils # (Auto) 0.1, Basophils # (Auto) 0.0, Immature Granulocyte # (Auto) 0.0 PHILL CHANDLER MD Jan 06, 2023 12:34
[2023-01-06] MEDS ORDERED: BENZOCAINE/MENTHOL (DERMOPLAST) 56 ML CAN TP PRN (12:45)
[2023-01-06] MEDS ORDERED: TETANUS,DIPTH,PERTUSS P/F (BOOSTRIX) 0.5 ML VIAL IM ONE (12:45)
[2023-01-06] MEDS ORDERED: WITCH HAZEL(TUCKS) 40 EA JAR TOP PRN (12:45)
[2023-01-06] MEDS: IBUPROFEN 600 MG (MOTRIN) TAB PO SCH ×2 (13:14→20:53)
[2023-01-06] MEDS ORDERED: CATHETER FLUSH 10 ML SYR IV SCH ×2 (14:00)
[2023-01-06] MEDS: DOCUSATE SODIUM 100 MG (COLACE) CAP PO SCH (20:53)
[2023-01-06] MEDS: ACETAMINOPHEN 500 MG TAB (TYLENOL) PO SCH (22:25)
[2023-01-07 00:34] VITALS: BP 99/57
[2023-01-07 04:41] VITALS: BP 100/72
[2023-01-07] MEDS: IBUPROFEN 600 MG (MOTRIN) TAB PO SCH ×3 (04:41→16:29)
[2023-01-07] MEDS: ACETAMINOPHEN 500 MG TAB (TYLENOL) PO SCH ×3 (04:41→16:29)
[2023-01-07 05:25] LABS: BASOPHILS % (AUTO) 0 % (0-10); EOSINOPHILS # (AUTO) 0.1 10^3/uL (0.0-0.3); EOSINOPHILS % (AUTO) 1 % (0-10); HEMATOCRIT 35 % (35-52); LYMPHOCYTES # (AUTO) 2.5 10^3/uL (1.0-4.0); LYMPHOCYTES % (AUTO) 23 % (12-44); MEAN CORPUSCULAR HEMOGLOBIN 33 pg (25-34); MEAN CORPUSCULAR HGB CONC 34 g/dL (32-36); MEAN CORPUSCULAR VOLUME 96 fL (80-99); MEAN PLATELET VOLUME 11.3 fL (9.0-12.2); MONOCYTES % (AUTO) 9 % (0-12); NEUTROPHILS # (AUTO) 6.9 10^3/uL (1.8-7.8); NEUTROPHILS % (AUTO) 65 % (42-75); PLATELET COUNT 155 10^3/uL (130-400); WHITE BLOOD COUNT 10.5 10^3/uL (4.3-11.0)
--- NOTE | 2023-01-07 09:30 | Postpartum Progress Note ---
Note Note Day # 1 Subjective: Patient is without complaints. Ambulating, voiding. Tolerating a regular diet without nausea or vomiting. Normal lochia. Pain is well controlled with oral pain medications. Breast feeding exclusively. Patient has no concerns. Denies fevers, nausea, and vomiting. Objective: Patient was up and ambulating around the room at the start of the exam. Physical Exam: General - Alert and oriented, no apparent distress Abdomen - Soft, appropriately tender to palpation, non-distended, fundus firm at umbilicus Extremities - no edema, negative Laya's bilaterally Cardiac- regular rate and rhythm Pulmonary- clear lung sounds bilaterally with no crackles or wheezes Assessment: Post- day # 1, status post spontaenous vaginal delivery. Recovering well, hemodynamically stable Plan: Routine care. Encourage breast feeding. Encourage ambulation. Ferrous sulfate supplementation. Plan for discharge today Vitals - Labs Vital Signs - I&O Vital Signs Date Time Temp Pulse Resp B/P (MAP) Pulse Ox O2 Delivery O2 Flow Rate FiO2 01/07/23 04:41 36.1 83 18 100/72 (81) 98 Room Air 01/07/23 00:34 36.8 80 18 99/57 (71) 98 Room Air 01/06/23 19:55 36.6 86 18 100/62 (75) 98 Room Air 01/06/23 14:52 83 18 98/55 (69) Room Air 01/06/23 14:44 83 18 98/55 (69) Room Air 01/06/23 14:14 93 18 102/62 (75) Room Air 01/06/23 13:44 80 18 107/57 (74) Room Air 01/06/23 13:31 37.2 80 18 101/57 (72) Room Air 01/06/23 13:16 95 18 109/57 (74) Room Air 01/06/23 13:01 83 18 101/60 (74) Room Air 01/06/23 12:46 88 18 112/66 (81) Room Air 01/06/23 12:34 36.6 93 18 107/58 (74) Room Air 01/06/23 12:17 107 18 116/62 (80) Room Air 01/06/23 12:02 Room Air 01/06/23 12:00 Room Air 01/06/23 11:45 Room Air 01/06/23 11:30 96 18 128/76 (93) 99 Room Air 01/06/23 11:15 96 18 128/76 (93) 99 Room Air 01/06/23 11:00 87 18 116/61 (79) 99 Room Air 01/06/23 10:45 93 18 108/64 (79) 98 Room Air 01/06/23 10:30 36.2 93 18 104/61 (75) 97 Room Air 01/06/23 10:15 83 18 104/60 (75) 97 Room Air 01/06/23 10:00 94 18 116/64 (81) 97 Room Air 01/06/23 09:48 83 18 106/66 (79) 98 Room Air 01/06/23 09:45 83 18 106/66 (79) 98 Room Air 01/06/23 09:43 76 18 95/59 (71) 96 Room Air 01/06/23 09:40 76 18 88/53 (65) 96 Room Air 01/06/23 09:37 72 18 85/54 (64) 98 Room Air 01/06/23 09:34 86 18 93/55 (68) 97 Room Air 01/06/23 09:30 85 89/52 (64) 97 Room Air 01/06/23 09:29 97 18 92/55 (67) 97 Room Air I & O 01/07/23 07:00 Intake Total 1400 ml Output Total 600 ml Balance 800 ml Labs Laboratory Tests 01/07/23 05:17: White Blood Count 10.5, Red Blood Count 3.66L, Hemoglobin 12.0, Hematocrit 35, Mean Corpuscular Volume 96, Mean Corpuscular Hemoglobin 33, Mean Corpuscular Hemoglobin Concent 34, Red Cell Distribution Width 12.7, Platelet Count 155, Mean Platelet Volume 11.3, Immature Granulocyte % (Auto) 0, Neutrophils (%) (Auto) 65, Lymphocytes (%) (Auto) 23, Monocytes (%) (Auto) 9, Eosinophils (%) (Auto) 1, Basophils (%) (Auto) 0, Neutrophils # (Auto) 6.9, Lymphocytes # (Auto) 2.5, Monocytes # (Auto) 1.0, Eosinophils # (Auto) 0.1, Basophils # (Auto) 0.0, Immature Granulocyte # (Auto) 0.0 GAL VERDIN Jan 07, 2023 09:30
[2023-01-07 10:30] VITALS: BP 111/57
[2023-01-07] MEDS: DOCUSATE SODIUM 100 MG (COLACE) CAP PO SCH (10:40)
--- NOTE | 2023-01-07 10:59 | Discharge Summary ---
Discharge Summary Hospital Course Problems Reviewed?: Yes Hospital Course Date of Admission: Jan 06, 2023 at 06:02 Admission Diagnosis : Family Physician/Provider: Myrna Fajardo MD Date of Discharge: 01/07/23 Discharge Diagnosis: [ ] Hospital Course: [ ] Labs and Pending Lab Test: Laboratory Tests 01/07/23 05:17: White Blood Count 10.5, Red Blood Count 3.66L, Hemoglobin 12.0, Hematocrit 35, Mean Corpuscular Volume 96, Mean Corpuscular Hemoglobin 33, Mean Corpuscular Hemoglobin Concent 34, Red Cell Distribution Width 12.7, Platelet Count 155, Mean Platelet Volume 11.3, Immature Granulocyte % (Auto) 0, Neutrophils (%) (Auto) 65, Lymphocytes (%) (Auto) 23, Monocytes (%) (Auto) 9, Eosinophils (%) (Auto) 1, Basophils (%) (Auto) 0, Neutrophils # (Auto) 6.9, Lymphocytes # (Auto) 2.5, Monocytes # (Auto) 1.0, Eosinophils # (Auto) 0.1, Basophils # (Auto) 0.0, Immature Granulocyte # (Auto) 0.0 Home Meds Active Reported Vitamin Tablet ( Vit No.124/Iron/FA) 1 Each Tablet 1 Each PO DAILY Patient Discharge Instructions 37yo F here post @ 38w3d without any complications. Patient is being discharged home today. Planning to breast feed at home. Patient will have some vaginal bleeding/spotting over the next few weeks which is normal. Patient can clean vaginal area with water and soap. Ibuprofen and tylenol can be taken for pain. Will have a 6 week visit with your obstetrics provider. Activity: Activity as Tolerated Driving Instructions: You May Drive NO SMOKING: NO SMOKING Nothing Inside Vagina: No Douching, No [place], No Tampons Discharge Diet: No Restrictions Symptoms to Report to : Extremity Discoloration, Numbness/Tingling, Bleeding Excessive, Pain Increased, Urine Color Change, Constipation(Persistant), Fever Over 101 Degrees F, Pain/Pressure in Chest, Urination Difficulty, Cough Up/Vomit Blood, Vaginal Bleeding Increase, Vaginal Discharge Foul, Diarrhea(Persistant), Questions/Concerns, Dizziness/Fainting, Nausea/Vomiting, Shortness of Breath For Any Problems or Questions: Contact Your Physician, Go to Emergency Room Discharge Physical Examination Allergies: Coded Allergies: No Known Drug Allergies (Unverified , 08/30/19) Vitals & I&Os Vital Signs Date Time Temp Pulse Resp B/P (MAP) Pulse Ox O2 Delivery O2 Flow Rate FiO2 01/07/23 04:41 36.1 83 18 100/72 (81) 98 Room Air General Appearance: No Apparent Distress, WD/WN HEENT: Moist Mucous Membranes Respiratory: Chest Non Tender, Lungs Clear; No Crackles, No Wheezing Cardiovascular: Regular Rate, Rhythm; No No Edema; Normal Peripheral Pulses (Right 2+ radial ) Gastrointestinal: Non Tender, Soft Extremity: Normal Range of Motion; No Pedal Edema, No Swelling Skin: Warm/Dry Neurologic/Psychiatric: Alert, Oriented x3, Normal Mood/Affect Discharge Summary Date of Admission Jan 06, 2023 at 06:02 Date of Discharge GAL VERDIN Jan 07, 2023 10:58
[2023-01-07] MEDS ORDERED: DOCU100C37 PO (14:12)
[2023-01-07] MEDS ORDERED: IBUP-844 PO (14:12)
--- NOTE | 2023-01-07 14:27 | Anesthesia-Regional Post-Op ---
Regional Patient Condition Mental Status: Alert, Oriented x3 Circulation: Same as Pre-Op Headache: Absent Sensation: Full Recovery Motor Block: Absent Post Op Complications Complications None Follow Up Care/Instructions Patient Instructions None needed. Anesthesia/Patient Condition Patient is doing well, no complaints, stable vital signs, no apparent adverse anesthesia problems. No complications reported per nursing. ERICKA CISNEROS CRNA Jan 07, 2023 14:27
== END 2023-01-07 17:05 | disposition home or self-care (01) | DRG 807 ==
LOC: WSo 23:34 → LDRP 23:35 → WSo 01-06 06:01 → LDRP 01-06 06:02
PROVIDERS: ADMIT Family Medicine; ATTEND Family Medicine
PROC: 10E0XZZ Delivery of Products of Conception, External Approach (ICD-10-PCS; principal; 2023-01-06)
PROC: 10907ZC Drainage of Amniotic Fluid, Therapeutic from Products of Conception, Via Natural or Artificial Opening (ICD-10-PCS; 2023-01-06)
DX: O63.0 Prolonged first stage (of labor) (principal); Z37.0 Single live birth; Z3A.38 38 weeks gestation of pregnancy; Z28.310 Unvaccinated for COVID-19
CPT/HCPCS: 36415; 85025; 86780; 86850; 86900; 86901; 99212